=== PATIENT | female | born 1990 | race Hispanic/Latino ===

== ENCOUNTER 2018-02-21 20:39 | Emergency (ER) | payer MEDICAID ==
[~2018-02-21] VITALS: Ht 165.1 cm; Wt 87.8 kg
[2018-02-21 21:26] LABS: HEMOGLOBIN 15.1 G/DL (11.9-15.5); MCH 31.8 PG (29.0-34.0); MCHC 35.1 G/DL (30.0-36.0); MCV 90.5 FL (83-99); PLATELET COUNT 381 K/uL (156-360); RBC DIS.WIDTH-CV 11.8 % (11.8-14.6); RBC DIS.WIDTH-SD 39.2 % (39-53); RED BLOOD COUNT 4.75 M/uL (3.80-5.20); WHITE BLOOD COUNT 5.2 K/uL (4.1-10.2)
[2018-02-21 21:33] LABS: CHLORIDE 101 mEq/L (99-109); POTASSIUM 3.7 mEq/L (3.7-5.4); SODIUM 138 mEq/L (136-147)
[2018-02-21 21:35] LABS: GLUCOSE 101 mg/dL (70-99)
[2018-02-21 21:39] LABS: CREATININE 0.8 mg/dL (0.6-1.3); UREA NITROGEN (BUN) 15 mg/dL (9-23)
[2018-02-21 21:51] LABS: QUANTITATIVE HCG < 4.0 MIU/ML
[2018-02-21 21:52] LABS: GFR ESTIMATE (CALCULATED) > 59 mL/min/
[2018-02-21 21:59] LABS: APPEARANCE SL.HAZY ((CLEAR)); BILIRUBIN NEGATIVE; BLOOD SMALL; COLOR YELLOW ((YELLOW)); GLUCOSE (STRIP) NEGATIVE; KETONES NEGATIVE; LEUKOCYTES NEGATIVE; NITRITE NEGATIVE; PROTEIN (STRIP) 30; SPECIFIC GRAVITY 1.021 (1.000-1.030); UROBILINOGEN 0.2 MG/DL (0.2-1.0)
[2018-02-21 22:12] LABS: BACTERIA NONE SEEN /HPF; EPITHELIAL CELLS 2+ /HPF; MUCUS TRACE /LPF; UCUL ADDED? NO; WHITE BLOOD CELLS 0-5 /HPF (0-5)
[2018-02-22] MEDS ORDERED: ZOFRAN ODT8 MG PO (00:26)
[2018-02-22] MEDS ORDERED: MOTRIN800 MG PO (00:26)
[2018-02-22] MEDS ORDERED: KEFLEX500 MG PO (00:26)
[2018-02-22 00:50] VITALS: BP 119/67
== END 2018-02-22 02:26 | disposition home or self-care (01) ==
LOC: EME 20:39
DX: N12 Tubulo-interstitial nephritis, not specified as acute or chronic (principal); N20.0 Calculus of kidney; R03.0 Elevated blood-pressure reading, without diagnosis of hypertension; Z87.442 Personal history of urinary calculi; Z88.6 Allergy status to analgesic agent
CPT/HCPCS: 74176; 80048; 81003; 84702; 85027; 87086; 99281; 99285; J0696; J1885; J3010